=== PATIENT | male | born 1970 | race Caucasian/White ===

== ENCOUNTER 2025-04-15 02:31 | Inpatient (IN) | payer OTHER ==
[~2025-04-15] VITALS: Ht 182.9 cm; Wt 90.9 kg
[2025-04-15 03:07] LABS: PLATELET COUNT (AUTO) 280 K/uL (150-450); RED BLOOD CELL COUNT(AUTO) 4.48 MIL/uL (4.50-5.90); RED CELL DISTRIBUTION WIDTH 13.6 % (11.5-14.5); WHITE BLOOD COUNT (AUTO) 8.0 K/uL (4.5-11.0)
[2025-04-15 03:11] LABS: GLUCOMETER DEV NAME(LOC) ER.7; GLUCOSE,POINT OF CARE 113 MG/DL (70-110)
[2025-04-15 03:21] LABS: CALCIUM, TOTAL 9.3 mg/dL (8.8-10.5); CREATININE 0.77 mg/dL (0.60-1.30); GLOMERULAR FILTR. RATE CALC > 60 mL/min (>60); GLUCOSE,RANDOM 117 mg/dL (70-110); SODIUM SERUM 139 mmol/L (136-145); UREA NITROGEN, BLOOD 29 mg/dL (7-18)
[2025-04-15 03:31] LABS: TROPONIN I-HIGH SENSITIVITY 6 ng/L (<76)
[2025-04-15] MEDS: ERYTHROMYCIN 0.5% 3.5 GM TUBE OPHTHALMIC OINTMENT OD ONE (06:06)
[2025-04-15 10:51] VITALS: BP 135/62; PULSE 66; RESP 18; TEMP 98.4; O2SAT 98
[2025-04-15 11:32] LABS: PH,URINE DRUG SCREEN 6.0 (5.0-8.0)
[2025-04-15 11:55] LABS: ALCOHOL, URINE DRUG SCREEN NEGATIVE (NEGATIVE); AMPHET/METH SCREEN,URINE NEGATIVE (NEGATIVE); BARBITURATE SCREEN, URINE NEGATIVE (NEGATIVE); CANNABINOID SCREEN,URINE NEGATIVE (NEGATIVE); COCAINE SCREEN,URINE NEGATIVE (NEGATIVE); METHADONE SCREEN, URINE NEGATIVE (NEGATIVE)
[2025-04-15] MEDS ORDERED: ACET-2247 PO (11:56)
[2025-04-15] MEDS ORDERED: MOME13HF12 IH (12:26)
[2025-04-15] MEDS ORDERED: ATEN-73 PO (12:26)
[2025-04-15] MEDS ORDERED: MECL-302 PO (12:26)
[2025-04-15] MEDS ORDERED: TRIA16.911 NASAL (12:26)
[2025-04-15] MEDS ORDERED: ATOR40TA28 PO (12:26)
[2025-04-15] MEDS ORDERED: LEVA15HF3 IH (12:26)
[2025-04-15] MEDS ORDERED: MIRT-149 PO (12:26)
[2025-04-15] MEDS ORDERED: HYDR50CA7 PO (12:26)
[2025-04-15] MEDS ORDERED: IBUP-1492 PO (12:26)
[2025-04-15] MEDS ORDERED: BENZ142C8 TP (12:26)
[2025-04-15] MEDS ORDERED: PETR100O3 TP (12:26)
[2025-04-15] MEDS ORDERED: MELA3TAB89 PO (12:26)
[2025-04-15] MEDS ORDERED: LIDO5CRE26 TP (12:26)
[2025-04-15] MEDS ORDERED: ASPI-1450 PO (12:26)
[2025-04-15 21:11] VITALS: BP 140/82; PULSE 71; RESP 18; TEMP 98.6; O2SAT 96
[2025-04-15] MEDS ORDERED: ACETAMINOPHEN 325 MG TABLET PO PRN (22:30)
[2025-04-15] MEDS ORDERED: IBUPROFEN 600 MG TABLET PO PRN (22:30)
[2025-04-15] MEDS ORDERED: IPRATROPIUM BROMIDE 0.5 MG/2.5 ML NEB SOLUTION NEB PRN (22:30)
[2025-04-15] MEDS ORDERED: ONDANSETRON HCL 4 MG/2 ML VIAL IVP PRN (22:30)
[2025-04-15] MEDS ORDERED: ZOLPIDEM TARTRATE 5 MG TABLET PO PRN (22:30)
[2025-04-15] MEDS ORDERED: [UNRECOGNIZED DRUG - OTHER] TP PRN (22:30)
[2025-04-15] MEDS ORDERED: LEVALBUTEROL TARTRATE HFA 45 MCG/PUFF 15 GM INHALER IH PRN (22:30)
[2025-04-15] MEDS ORDERED: [UNRECOGNIZED DRUG - OTHER] TP SCH (22:30)
[2025-04-15] MEDS ORDERED: MORPHINE SULFATE 4 MG/ML SYRINGE IVP PRN (22:30)
[2025-04-15] MEDS ORDERED: MECLIZINE HCL 25 MG TABLET PO PRN (22:30)
[2025-04-15] MEDS ORDERED: DEXTROSE 50%-WATER 25 GM/50 ML SYRINGE IVP PRN (22:30)
[2025-04-15] MEDS ORDERED: ALBUTEROL SULFATE 2.5 MG/0.5 ML NEB SOLUTION NEB PRN (22:30)
[2025-04-15] MEDS ORDERED: PETROLATUM,WHITE 28 GM JELLY TP PRN (22:30)
[2025-04-15 23:02] LABS: PLATELET COUNT (AUTO) 262 K/uL (150-450); RED BLOOD CELL COUNT(AUTO) 4.33 MIL/uL (4.50-5.90); RED CELL DISTRIBUTION WIDTH 12.9 % (11.5-14.5); WHITE BLOOD COUNT (AUTO) 8.0 K/uL (4.5-11.0)
[2025-04-15] MEDS: HEPARIN SODIUM,PORCINE 5,000 UNITS/ML VIAL SQ SCH (23:20)
[2025-04-16 05:17] VITALS: BP 135/66; PULSE 71; RESP 18; TEMP 98.6; O2SAT 98
[2025-04-16 07:02] LABS: ASPARTATE AMINOTRANSFERASE 21 U/L (15-37); CALCIUM, TOTAL 9.0 mg/dL (8.8-10.5); CREATININE 0.85 mg/dL (0.60-1.30); GLOMERULAR FILTR. RATE CALC > 60 mL/min (>60); GLUCOSE,RANDOM 100 mg/dL (70-110); SODIUM SERUM 141 mmol/L (136-145); TOTAL PROTEIN, SERUM 7.1 g/dL (6.4-8.2); UREA NITROGEN, BLOOD 30 mg/dL (7-18)
[2025-04-16] MEDS: PANTOPRAZOLE SODIUM 40 MG DR TABLET PO SCH (07:58)
[2025-04-16] MEDS: ASPIRIN 81 MG CHEWABLE TABLET PO SCH (07:58)
[2025-04-16] MEDS: TRIAMCINOLONE ACET 55 MCG/SPRAY 16.9 ML NASAL SPRAY NASAL SCH (08:04)
[2025-04-16 08:49] VITALS: BP 147/91; PULSE 80; RESP 18; TEMP 98.1; O2SAT 98
[2025-04-16] MEDS ORDERED: [UNRECOGNIZED DRUG - OTHER] IH SCH (09:00)
[2025-04-16] MEDS ORDERED: LORazepam 2 MG/ML VIAL IVP ONE (12:00)
[2025-04-16] MEDS: ATORVASTATIN CALCIUM 40 MG TABLET PO SCH (20:40)
[2025-04-16] MEDS: MELATONIN 3 MG TABLET PO SCH (20:40)
[2025-04-16] MEDS: MIRTAZAPINE 30 MG TABLET PO SCH (20:40)
[2025-04-17 04:53] VITALS: BP 127/90; PULSE 84; RESP 18; TEMP 98.1; O2SAT 97
[2025-04-17 08:00] VITALS: BP 152/93; PULSE 100; RESP 18; TEMP 98.4; O2SAT 96
[2025-04-17] MEDS: LORazepam 2 MG/ML VIAL IVP SCH (18:00)
[2025-04-18] MEDS: HYDROCODONE/ACETAMINOPHEN 5-325 MG TABLET PO PRN (13:03)
[2025-04-18 19:41] LABS: GLUCOMETER DEV NAME(LOC) 4E.2; GLUCOSE,POINT OF CARE 134 MG/DL (70-110)
[2025-04-19 21:28] VITALS: BP 137/93; PULSE 73; RESP 17; TEMP 99; O2SAT 99
[2025-04-19] MEDS: LORazepam 2 MG/ML VIAL IM ONE (22:49)
[2025-04-20 06:19] VITALS: BP 130/86; PULSE 75; RESP 18; TEMP 97.3; O2SAT 94
[2025-04-20 08:39] VITALS: BP 125/88; PULSE 76; RESP 20; TEMP 98.1; O2SAT 96
[2025-04-20 20:00] VITALS: BP 133/90; PULSE 97; RESP 18; TEMP 97.3; O2SAT 96
[2025-04-21 05:57] VITALS: BP 142/89; PULSE 95; RESP 19
[2025-04-21] MEDS: OLANZapine 5 MG RAPDIS TABLET PO SCH (15:02)
[2025-04-21 20:00] VITALS: BP 132/97; PULSE 115; RESP 18; TEMP 99.7; O2SAT 98
[2025-04-21] MEDS: ACETAMINOPHEN 325 MG TABLET PO PRN (20:26)
[2025-04-21 21:00] VITALS: TEMP 98.9
[2025-04-22 07:49] VITALS: BP 121/90; PULSE 107; RESP 18; TEMP 98.2; O2SAT 100
[2025-04-23 03:53] VITALS: BP 112/87; PULSE 95; RESP 18; O2SAT 97
[2025-04-23 08:57] VITALS: BP 115/85; PULSE 93; RESP 20; TEMP 97.7; O2SAT 96
[2025-04-23 19:42] VITALS: BP 100/72; PULSE 91; RESP 18; TEMP 97.7; O2SAT 97
[2025-04-23] MEDS: MAGNESIUM HYDROXIDE SUSPENSION 30 ML UDCUP PO PRN (22:25)
[2025-04-24 04:37] VITALS: BP 111/81; PULSE 83; RESP 18; TEMP 97.5; O2SAT 96
[2025-04-24 08:20] VITALS: BP 116/78; PULSE 96; RESP 18; TEMP 97.7; O2SAT 97
[2025-04-24] MEDS: BISACODYL 10 MG RECTAL RECTAL SUPPOSITORY PR PRN (16:35)
[2025-04-24 20:30] VITALS: BP 110/81; PULSE 87; RESP 18; TEMP 97.5; O2SAT 97
[2025-04-25 04:56] VITALS: BP 120/86; PULSE 76; RESP 17; TEMP 97.7; O2SAT 98
[2025-04-25 08:00] VITALS: BP 107/80; PULSE 72; RESP 19; TEMP 98; O2SAT 99
[2025-04-25] MEDS ORDERED: OLAN5TAB52 PO (14:06)
[2025-04-25] MEDS ORDERED: MAGN-169 PO (14:09)
[2025-04-25] MEDS ORDERED: QUET25TA PO (14:11)
== END 2025-04-25 20:45 | DRG 93 ==
LOC: EMS 02:31 → EDH 07:09 → 6S 10:50
PROVIDERS: ADMIT Internal Medicine; ATTEND Internal Medicine
PROC: GZ52ZZZ Individual Psychotherapy, Cognitive (ICD-10-PCS; principal; 2025-04-17)
DX: G92.8 Other toxic encephalopathy (principal); J45.909 Unspecified asthma, uncomplicated; F25.9 Schizoaffective disorder, unspecified; E78.5 Hyperlipidemia, unspecified; F41.1 Generalized anxiety disorder; I10 Essential (primary) hypertension; H10.89 Other conjunctivitis; F06.1 Catatonic disorder due to known physiological condition; Z91.199 Patient's noncompliance with other medical treatment and regimen due to unspecified reason; Z79.899 Other long term (current) drug therapy; Z88.8 Allergy status to other drugs, medicaments and biological substances
CPT/HCPCS: 70450; 80048; 80053; 80307; 82962; 84484; 85025; 93005; 97162; 97530; 99285; G0480; J1200; J1630; J1644; J2060